=== PATIENT | male | born 1975 | race Caucasian/White ===

== ENCOUNTER 2017-11-06 22:26 | Emergency (ER) | payer OTHER ==
[~2017-11-06] VITALS: Ht 185.4 cm; Wt 99.8 kg
[2017-11-06] MEDS ORDERED: Hydrocodone-Ap1 EA23 PO (22:40)
[2017-11-06] MEDS ORDERED: IBUP800 PO (22:41)
[2017-11-06 23:46] LABS: BASOPHILS ABSOLUTE AUTO 0.06 K/mm3 (0.00-0.23); BASOPHILS PERCENT AUTO 1 % (0-2); EOSINOPHILS ABSOLUTE AUTO 0.11 K/mm3 (0.00-0.68); EOSINOPHILS PERCENT AUTO 1 % (0-6); Hematocrit 44.9 % (37.0-53.0); Hemoglobin 15.6 g/dL (13.5-17.5); IMMATURE GRAN ABSOLUTE AUTO 0.04 K/mm3 (0.00-0.10); IMMATURE GRAN PERCENT AUTO 1 % (0-1); LYMPHOCYTES PERCENT AUTO 15 % (21-46); MONOCYTES ABSOLUTE AUTO 0.57 K/mm3 (0.16-1.47); MONOCYTES PERCENT AUTO 7 % (4-13); Mean Corpuscular HGB 30.5 pg (26.0-34.0); Mean Corpuscular HGB Conc 34.7 g/dL (31.5-36.5); Mean Corpuscular Volume 88 fL (80-100); Mean Platelet Volume 9.9 fL (9.1-12.4); NEUTROPHILS ABSOLUTE AUTO 6.55 K/mm3 (1.96-9.15); NEUTROPHILS PERCENT AUTO 76 % (41-73); Platelet Count 274 K/mm3 (150-400); RDW Coefficient Variation 11.8 % (11.7-14.2); RDW Standard Deviation 38.1 fL (35.1-46.3); Red Blood Cell Count 5.12 M/mm3 (4.30-5.90); White Blood Cell Count 8.63 K/mm3 (4.00-11.30)
[2017-11-07 00:04] LABS: Alanine Aminotransfer (ALT/SGP 85 U/L (12-78); Albumin, Blood 3.8 g/dL (3.4-5.0); Albumin/Globulin Ratio 1.3 (0.8-1.8); Alk Phos 66 U/L (50-136); Anion Gap 7 mmol/L (6-16); Aspartate Aminotrans (AST/SGOT 37 U/L (12-37); Bilirubin, Total 0.9 mg/dL (0.1-1.0); Blood Urea Nitrogen 17 mg/dL (8-24); Bun/Creatinine Ratio 16.5 (12.0-20.0); C-REACTIVE PROTEIN, EXT RANGE 0.449 mg/dL (0.000-0.300); CO2, Blood 27 mmol/L (21-32); Calcium, Blood 8.5 mg/dL (8.5-10.1); Chloride, Blood 108 mmol/L (98-108); Creatinine, Blood 1.03 mg/dL (0.60-1.20); Glomerular Filtration Rate >60 (60-); Glucose, Blood 110 mg/dL (70-99); Potassium, Blood 3.8 mmol/L (3.5-5.5); Sodium, Blood 142 mmol/L (136-145); Total Protein, Blood 6.8 g/dL (6.4-8.2)
== END 2017-11-07 03:10 | disposition short-term general hospital (02) ==
LOC: ER 22:26
PROVIDERS: Emergency Medicine
DX: M51.27 Other intervertebral disc displacement, lumbosacral region (principal); M54.18 Radiculopathy, sacral and sacrococcygeal region; Z88.0 Allergy status to penicillin
CPT/HCPCS: 72132; 80053; 85025; 85651; 86140; 96374; 96375; 99285; J2930; J3010; Q9967